=== PATIENT | male | born 1965 | race African-American/Black ===

== ENCOUNTER 2023-05-24 15:00 | Observation (INO) | payer BC ==
[2023-05-24 15:30] LABS: #Neutrophils 5.3 thou/uL (1.40-6.50); %Basophils 0.6 % (0.0-1.0); %Eosinophils 0.3 % (0.0-10.0); %Lymphocytes 8.9 % (21.0-51.0); %Monocytes 14.6 % (0.0-10.0); %Neutrophils 75.3 % (42.0-75.0); Hematocrit 44.5 % (42.0-52.0); Hemoglobin 15.5 g/dL (14.0-18.0); Mean Corpuscular HGB CONC 34.8 g/dL (32.0-36.0); Mean Corpuscular Hemoglobin 29.6 pg (27.0-31.0); Mean Corpuscular Volume 85.1 fl (78.0-98.0); Platelet Count 197 10x3/uL (130-400); RBC Distribution Width 12.2 % (11.5-14.5); Red Blood Cell (RBC) Count 5.23 mill/uL (4.70-6.10); White Blood Cell (WBC) Count 7.1 10x3/uL (4.8-10.8)
[2023-05-24 15:49] LABS: ALT (SGPT) 46 U/L (8-55); AST (SGOT) 50 U/L (5-34); Alkaline Phosphatase 74 U/L (40-110); Anion Gap 16 mmol/L (10-20); BUN (Urea Nitrogen) 10 mg/dL (8.4-25.7); Bilirubin, Total 1.6 mg/dL (0.2-1.2); Calc. Creatinine Clearance 0 mL/min (70-130); Calcium 9.2 mg/dL (7.8-10.44); Carbon Dioxide 23 mmol/L (22-29); Chloride 103 mmol/L (98-107); Estimated GFR 89; Globulin 3.8 g/dL (2.4-3.5); Glucose 127 mg/dL (70-105); Potassium 3.8 mmol/L (3.5-5.1); Protein, Total 7.8 g/dL (6.0-8.3); Sodium 138 mmol/L (136-145)
[2023-05-24 15:55] LABS: Bacteria/HPF None Seen HPF (None Seen); Bilirubin Negative (Negative); Blood, Urine Negative (Negative); CAUTI Indications for Culture Fever or rigors; Clarity Clear (Clear); Glucose, Urine (Dipstick) Normal (Negative); Ketone, Urine Negative (Negative); Leukocyte Negative Leu/uL (Negative); Nitrite Negative (Negative); Protein, Urine (Dipstick) 70 mg/dL (Neg-Trace); RBC/HPF 0-3 HPF (0-3); Squamous Epithelial 0-3 HPF (0-3); Urobilinogen Normal mg/dL (Less than 2); WBC/HPF 0-3 HPF (0-3); pH, Urine 6.5 (5.0-9.0)
[2023-05-24 15:57] LABS: Urine Culture Reflex No No
[2023-05-24] MEDS ORDERED: Cefepime 2 GM VIAL ONE (15:58)
[2023-05-24] MEDS ORDERED: Sodium Chloride 0.9% 100 ML ONE (15:59)
[2023-05-24] MEDS ORDERED: Vancomycin (BATCH) 2 GM in Premix 1 BAG IVPB SCH (16:00)
[2023-05-24] MEDS ORDERED: Vancomycin (BATCH) 2 GM/500 ML BAG ONE (16:16)
[2023-05-24] MEDS ORDERED: Ketorolac Tromethamine 30 MG/ML VIAL ONE (16:41)
[2023-05-24] MEDS ORDERED: methylPREDNISolone Sod Succ 1,000 MG in Sodium Chloride 0.9% 100 ML IVPB SCH (16:45)
[2023-05-24 16:46] LABS: SARS-CoV-2 NAA Rapid Test DETECTED (NotDetected)
[2023-05-24 17:21] LABS: INR-International Normal Ratio 1.1; PTT 31.1 sec (22.9-36.1); Prothrombin Time 14.6 sec (12.0-14.7)
[2023-05-24 17:23] LABS: D-Dimer Test 0.56 *mcg/mL (0.27-0.43)
[2023-05-24 17:29] LABS: Troponin I Less than 0.010 ng/mL (< 0.028)
[2023-05-24] MEDS ORDERED: Dextrose 50% Abboject 50 ML SYRINGE SLOW IVP PRN (21:14)
[2023-05-24] MEDS ORDERED: Dextrose 5% in Water 1,000 ML IV PRN (21:14)
[2023-05-24] MEDS ORDERED: HumaLOG 300 UNITS/3 ML VIAL SC PRN (21:14)
[2023-05-24] MEDS ORDERED: Acetaminophen 325 MG TAB PO PRN (21:14)
[2023-05-24] MEDS ORDERED: Glucagon 1 MG/ML KIT IM PRN (21:14)
[2023-05-24] MEDS ORDERED: Ondansetron PF 4 MG/2 ML Vial IVP PRN (21:14)
[2023-05-24] MEDS ORDERED: Albuterol 200 PUFF (6.7GM INHALER) INH PRN (21:28)
[2023-05-24] MEDS ORDERED: Ascorbic Acid 500 mg Chewable Tablet PO SCH (21:45)
[2023-05-24] MEDS ORDERED: Cholecalciferol 1,000 UNITS (25 MCG) TAB PO SCH (21:45)
[2023-05-24] MEDS ORDERED: Azithromycin 500 MG in Sodium Chloride 0.9% 250 ML 250 ML IVPB SCH (21:45)
[2023-05-24] MEDS ORDERED: Zinc Sulfate 220 MG CAP PO SCH (21:45)
[2023-05-24] MEDS ORDERED: cefTRIAXone\\ROCEPHIN 1 GM in Sodium Chloride 0.9% 100 ML IVPB SCH (21:45)
[2023-05-24] MEDS ORDERED: Lactated Ringer's 1,000 ML IV SCH (22:00)
[2023-05-24 22:58] VITALS: BMI 37.5
[2023-05-25] MEDS ORDERED: Vancomycin (BATCH) 1.75 GM in Premix 1 BAG IVPB SCH (04:00)
[2023-05-25 05:05] LABS: #Monocytes 0.1 thou/uL (0.11-0.59); #Neutrophils 4.3 thou/uL (1.40-6.50); %Basophils 0.2 % (0.0-1.0); %Lymphocytes 7.3 % (21.0-51.0); %Monocytes 2.7 % (0.0-10.0); %Neutrophils 89.4 % (42.0-75.0); Hematocrit 46.6 % (42.0-52.0); Hemoglobin 15.5 g/dL (14.0-18.0); Mean Corpuscular HGB CONC 33.3 g/dL (32.0-36.0); Mean Corpuscular Hemoglobin 29.1 pg (27.0-31.0); Mean Corpuscular Volume 87.6 fl (78.0-98.0); Mean Platelet Volume 11.3 fL (7.4-10.4); Platelet Count 219 10x3/uL (130-400); RBC Distribution Width 12.1 % (11.5-14.5); Red Blood Cell (RBC) Count 5.32 mill/uL (4.70-6.10); White Blood Cell (WBC) Count 4.8 10x3/uL (4.8-10.8)
[2023-05-25 05:28] LABS: ALT (SGPT) 57 U/L (8-55); AST (SGOT) 51 U/L (5-34); Albumin 4.2 g/dL (3.5-5.0); Alkaline Phosphatase 77 U/L (40-110); Anion Gap 13 mmol/L (10-20); BUN (Urea Nitrogen) 13 mg/dL (8.4-25.7); Bilirubin, Total 1.2 mg/dL (0.2-1.2); Calc. Creatinine Clearance 130 mL/min (70-130); Calcium 9.6 mg/dL (7.8-10.44); Carbon Dioxide 25 mmol/L (22-29); Chloride 102 mmol/L (98-107); Estimated GFR 68; Globulin 3.7 g/dL (2.4-3.5); Glucose 334 mg/dL (70-105); Potassium 4.2 mmol/L (3.5-5.1); Protein, Total 7.9 g/dL (6.0-8.3); Sodium 136 mmol/L (136-145)
[2023-05-25] MEDS: HumaLOG 300 UNITS/3 ML VIAL SC PRN ×3 (05:39→14:23)
[2023-05-25] MEDS ORDERED: Cholecalciferol 1,000 UNITS (25 MCG) TAB PO SCH (09:00)
[2023-05-25] MEDS ORDERED: NIRMATRELVIR 150 MG/RITONAVIR 100 MG PO SCH (09:00)
[2023-05-25] MEDS ORDERED: Amlodipine 5 mg/Benazepril 20 mg CAP PO SCH (09:00)
[2023-05-25] MEDS ORDERED: Ascorbic Acid 500 mg Chewable Tablet PO SCH (09:00)
[2023-05-25] MEDS ORDERED: Zinc Sulfate 220 MG CAP PO SCH (09:00)
[2023-05-25 12:08] VITALS: TEMP 98.3
[2023-05-25 16:06] VITALS: BP 145/77
== END 2023-05-25 17:17 | disposition home or self-care (01) ==
LOC: ERS 15:00 → 2SW 20:43
PROVIDERS: ADMIT Student in an Organized Health Care Education/Training Program; ATTEND Family Medicine
DX: U07.1 COVID-19 (principal); R00.0 Tachycardia, unspecified; I10 Essential (primary) hypertension; E11.9 Type 2 diabetes mellitus without complications; G35 Multiple sclerosis; E66.01 Morbid (severe) obesity due to excess calories; R53.1 Weakness; R50.9 Fever, unspecified; Z79.899 Other long term (current) drug therapy; Z68.37 Body mass index [BMI] 37.0-37.9, adult
CPT/HCPCS: 36415; 36416; 71045; 80053; 81001; 83605; 83880; 84439; 84443; 84484; 85025; 85379; 85610; 85730; 87040; 87081; 87804; 93005; 96361; 96365; 96372; 96375; G0378; J0456; J0692; J0696; J1650; J1815; J1885; J2930; J3370; J3490; J7050; J7120; U0002

== ENCOUNTER 2024-06-30 12:35 | Emergency (ER) | payer BC ==
[2024-06-30 16:16] LABS: #Basophils 0.05 10x3/uL (0.0-0.2); #Eosinophils Less than 0.03 10x3/uL (0.0-0.7); %Basophils 0.8 % (0.0-1.0); %Eosinophils 0.3 % (0.0-10.0); %Monocytes 14.9 % (0.0-10.0); %Neutrophils 59.5 % (42.0-75.0); Hematocrit 51.9 % (42.0-52.0); Hemoglobin 18.2 g/dL (14.0-18.0); Mean Corpuscular HGB CONC 35.1 g/dL (32.0-36.0); Mean Corpuscular Hemoglobin 29.3 pg (27.0-31.0); Mean Corpuscular Volume 83.6 fL (78.0-98.0); Mean Platelet Volume 11.1 fL (7.4-10.4); Platelet Count 184 10x3/uL (130-400); RBC Distribution Width 12.8 % (11.5-14.5); Red Blood Cell (RBC) Count 6.21 mill/uL (4.70-6.10)
[2024-06-30 16:30] LABS: Bacteria/HPF None Seen HPF (None Seen); Bilirubin Negative (Negative); Blood, Urine Negative (Negative); CAUTI Indications for Culture Dysuria,urgency,freq; Clarity Clear (Clear); Glucose, Urine (Dipstick) 30 mg/dL (Negative); Ketone, Urine Negative (Negative); Leukocyte Negative Leu/uL (Negative); Nitrite Negative (Negative); Protein, Urine (Dipstick) 100 mg/dL (Neg-Trace); RBC/HPF None Seen HPF (0-3); Specific Gravity, Urine 1.017 (1.002-1.036); Squamous Epithelial 0-3 HPF (0-3); Urobilinogen Normal mg/dL (Less than 2); WBC/HPF 0-3 HPF (0-3); pH, Urine 5.5 (5.0-9.0)
[2024-06-30 16:32] LABS: Urine Culture Reflex No No
[2024-06-30 16:34] LABS: ALT (SGPT) 43 U/L (8-55); AST (SGOT) 34 U/L (5-34); Albumin 4.2 g/dL (3.5-5.0); Alkaline Phosphatase 80 U/L (40-110); Anion Gap 16 mmol/L (10-20); BUN (Urea Nitrogen) 15 mg/dL (8.4-25.7); Bilirubin, Total 2.2 mg/dL (0.2-1.2); Calc. Creatinine Clearance 0 mL/min (70-130); Calcium 9.8 mg/dL (7.8-10.44); Carbon Dioxide 24 mmol/L (22-29); Chloride 95 mmol/L (98-107); Estimated GFR 68; Glucose 255 mg/dL (70-105); Potassium 4.4 mmol/L (3.5-5.1); Protein, Total 9.2 g/dL (6.0-8.3); Sodium 131 mmol/L (136-145)
[2024-06-30 16:40] LABS: Troponin I Less than 0.010 ng/mL (< 0.028)
== END 2024-06-30 18:03 | disposition home or self-care (01) ==
LOC: ERS 12:35
DX: R53.1 Weakness (principal); I10 Essential (primary) hypertension; E11.9 Type 2 diabetes mellitus without complications; F17.290 Nicotine dependence, other tobacco product, uncomplicated
CPT/HCPCS: 36415; 71046; 80053; 81001; 84484; 85025; 87428; 93005